=== PATIENT | male | born 1965 | race Caucasian/White ===

== ENCOUNTER → 2018-01-26 | Outpatient (CLI) | payer MEDICAID, SELFPAY ==
[~2018-01-26] MED LIST: Bp med; None per pt
[2018-01-26 11:40] LABS: BASOPHILS # (AUTO) 0.04 x10^3/uL (0-0.1); BASOPHILS % (AUTO) 1 % (0-1); EOSINOPHILS # (AUTO) 0.16 x10^3/uL (0-0.4); EOSINOPHILS % (AUTO) 2 % (1-7); LYMPHOCYTES # (AUTO) 2.12 x10^3/uL (1-3.4); LYMPHOCYTES % (AUTO) 29 % (22-44); MD NO; MEAN CORPUSCULAR HEMOGLOBIN 31.1 pg (27.5-34.5); MEAN CORPUSCULAR HGB CONC 33.8 g/dL (33.2-36.2); MEAN CORPUSCULAR VOLUME 92.1 fL (81-97); MEAN PLATELET VOLUME 8.1 fL (7.4-10.4); MONOCYTES # (AUTO) 0.93 x10^3/uL (0.2-0.8); MONOCYTES % (AUTO) 13 % (2-9); NEUTROPHILS # (AUTO) 4.05 x10^3/uL (1.8-6.8); NEUTROPHILS % (AUTO) 56 % (42-75); PLATELET COUNT 254 x10^3/uL (130-400); RED BLOOD COUNT 5.51 x10^6/uL (4.38-5.82); RED CELL DISTRIBUTION WIDTH 13.7 % (9.4-14.8)
[2018-01-26 11:51] LABS: ALBUMIN 3.8 g/dL (3.4-5.0); ANION GAP 8 mmol/L (5-15); CHLORIDE 106 mmol/L (98-107)
[2018-01-26 11:54] LABS: ALANINE AMINOTRANSFERASE 226 U/L (12-78); ALKALINE PHOSPHATASE 63 U/L (45-117); BILIRUBIN,TOTAL 1.1 mg/dL (0.2-1.0); CREATININE 1.14 mg/dL (0.7-1.3); TOTAL PROTEIN 7.6 g/dL (6.4-8.2)
[2018-01-26 11:55] LABS: INTERNATIONAL NORMALIZED RATIO 0.96 (0.93-1.1)
[2018-01-26 11:59] LABS: HCT (SEDRATE) 50.8 % (39.2-51.8)
[2018-01-26 12:16] LABS: MICROSCOPIC AUTO
[2018-01-26 12:40] LABS: CULTURE INDICATED? YES
== END | disposition home or self-care (01) ==
LOC: STAR 10:30
PROVIDERS: ATTEND Orthopaedic Surgery Orthopaedic Surgery of the Spine
DX: Z01.818 Encounter for other preprocedural examination (principal); M47.22 Other spondylosis with radiculopathy, cervical region; I10 Essential (primary) hypertension; Z87.891 Personal history of nicotine dependence
CPT/HCPCS: 36415; 71046; 72052; 80053; 80074; 81001; 85025; 85610; 85651; 85730; 87086; 87521; 87806; 93005; G0475

== ENCOUNTER 2018-01-31 05:58 | Inpatient (IN) | payer MEDICAID ==
[~2018-01-31] VITALS: Ht 167.6 cm; Wt 83.4 kg
[2018-01-31] MEDS ORDERED: LACTATED RINGERS 1,000 ML IV SCH (06:39)
[2018-01-31] MEDS ORDERED: LIDOCAINE-MPF 1%, 2ML ONE (06:39)
[2018-01-31] MEDS ORDERED: BUPIVACAINE 0.25% ONE (06:52)
[2018-01-31] MEDS ORDERED: EPINEPHRINE 1 MG/ML, 1ML ONE (06:52)
[2018-01-31] MEDS ORDERED: BUPIVACAINE/PF 0.5% ONE (06:52)
[2018-01-31] MEDS ORDERED: INDIGO CARMINE 0.8%, 5ML ONE (06:52)
[2018-01-31] MEDS ORDERED: LIDOCAINE/PF 1%, 30ML ONE (06:52)
[2018-01-31] MEDS ORDERED: THROMBIN 5,000 UNIT VIAL TP ONE (06:53)
[2018-01-31] MEDS ORDERED: BACITRACIN 50,000 UNIT ONE (06:53)
[2018-01-31] MEDS ORDERED: LIDOCAINE-MPF 1%, 2ML INFIL ONE (07:00)
[2018-01-31 07:01] LABS: CULTURE INDICATED? NO; MICROSCOPIC NOT IND
[2018-01-31] MEDS ORDERED: ONDANSETRON ODT 8 MG PO ONE (07:08)
[2018-01-31] MEDS ORDERED: KETAMINE 10 MG/ML, 20ML ONE (07:09)
[2018-01-31] MEDS ORDERED: FENTANYL PF 250 MCG/5ML ONE (07:09)
[2018-01-31] MEDS ORDERED: MIDAZOLAM 1 MG/ML, 2ML ONE (07:09)
[2018-01-31] MEDS ORDERED: PROPOFOL 50 ML ONE ×2 (07:09→10:00)
[2018-01-31] MEDS ORDERED: SUFentanil 50 MCG/ML, 2ML ONE ×2 (07:23→07:26)
[2018-01-31] MEDS ORDERED: ACETAMINOPHEN 500 MG TABLET PO ONE (07:30)
[2018-01-31] MEDS ORDERED: METOCLOPRAMIDE 10MG TABLET PO ONE (07:30)
[2018-01-31] MEDS ORDERED: FAMOTIDINE 20 MG TABLET PO ONE (07:30)
[2018-01-31] MEDS ORDERED: TAMSULOSIN 0.4 MG CAP.ER.24H PO ONE (07:30)
[2018-01-31] MEDS ORDERED: OxyconTIN ER 20 MG TAB.ER PO ONE (07:30)
[2018-01-31] MEDS ORDERED: ROCURONIUM 10 MG/ML,10ML ONE (07:56)
[2018-01-31] MEDS ORDERED: CEFAZOLIN 1,000 MG ONE (07:56)
[2018-01-31] MEDS ORDERED: PHENYLEPHRINE 10 MG/ML ONE (07:56)
[2018-01-31] MEDS ORDERED: SUCCINYLCHOLINE 20 MG/ML, 10ML ONE (07:56)
[2018-01-31] MEDS ORDERED: GLYCOPYRROLATE 0.2MG/1ML, 5ML ONE (07:56)
[2018-01-31] MEDS ORDERED: DEXAMETHASONE 4 MG/ML, 5ML ONE (07:56)
[2018-01-31] MEDS ORDERED: NALOXONE 0.4 MG/ML, 1ML ONE (07:56)
[2018-01-31] MEDS ORDERED: CELE200C PO (08:32)
[2018-01-31] MEDS ORDERED: GABA300C10 PO (08:32)
[2018-01-31] MEDS ORDERED: MELO15TA24 PO (08:32)
[2018-01-31] MEDS ORDERED: HYDR25TA6 PO (08:32)
[2018-01-31] MEDS ORDERED: CEPH-376 PO (08:32)
[2018-01-31] MEDS ORDERED: PROPOFOL 150 ML ONE (08:32)
[2018-01-31] MEDS ORDERED: LABETALOL 5MG/ML, 20ML IV PRN (10:30)
[2018-01-31] MEDS ORDERED: MEPERIDINE/PF 25MG/0.5ML IVPush PRN (10:30)
[2018-01-31] MEDS ORDERED: ALBUTEROL SULFATE 2.5 MG/3 ML NPPB PRN (10:30)
[2018-01-31] MEDS ORDERED: OXYcodone 5 MG/5 ML ORAL.SOL UDC PO PRN (10:30)
[2018-01-31] MEDS ORDERED: FENTANYL PF 100 MCG/2ML IV PRN (10:30)
[2018-01-31] MEDS ORDERED: DIAZEPAM 5 MG/ML, 2ML IVPush PRN (10:30)
[2018-01-31] MEDS ORDERED: morphine SULFATE 10 MG/ML, 1ML IV PRN (10:30)
[2018-01-31] MEDS ORDERED: PROMETHAZINE 25 MG/ML, 1ML IV PRN (10:30)
[2018-01-31] MEDS ORDERED: DIPHENHYDRAMINE 50 MG/ML, 1ML IVPush PRN (14:30)
[2018-01-31] MEDS ORDERED: DIPHENHYDRAMINE 50 MG/ML, 1ML IM PRN (14:30)
[2018-01-31] MEDS ORDERED: PROMETHAZINE 12.5 MG SUPP PR PRN (14:30)
[2018-01-31] MEDS ORDERED: PROMETHAZINE 25 MG/ML, 1ML IM PRN (14:30)
[2018-01-31] MEDS ORDERED: MAGNESIUM HYDROXIDE 8%, 30ML UDC PO PRN (14:30)
[2018-01-31] MEDS ORDERED: HYDROmorphone 2 MG/ML, 1ML IM PRN (14:30)
[2018-01-31] MEDS ORDERED: OXYcodone IR 5MG TABLET PO PRN ×3 (14:30)
[2018-01-31] MEDS ORDERED: DIAZEPAM 5 MG TABLET PO PRN (14:30)
[2018-01-31] MEDS ORDERED: DIAZEPAM 5 MG/ML, 2ML IV PRN (14:30)
[2018-01-31] MEDS ORDERED: DIPHENHYDRAMINE 50 MG CAPSULE PO PRN (14:30)
[2018-01-31] MEDS ORDERED: BISACODYL 10 MG SUPP PR PRN (14:30)
[2018-01-31] MEDS ORDERED: NICOTINE 21 MG/24 HR PATCH.TD24 TD SCH (14:30)
[2018-01-31] MEDS: D5%-0.9% NACL+KCL 20MEQ 1,000 ML IV SCH (15:09)
[2018-01-31] MEDS: DEXAMETHASONE 4 MG/ML, 1ML IVPush SCH ×2 (15:09→20:56)
[2018-01-31] MEDS: GABAPENTIN 300 MG CAPSULE PO SCH ×2 (15:20→20:56)
[2018-01-31] MEDS: CEFAZOLIN PMX 1GM/50ML 50 ML IVPB SCH (15:59)
[2018-01-31 19:44] VITALS: BP 112/61
[2018-02-01] MEDS: D5%-0.9% NACL+KCL 20MEQ 1,000 ML IV SCH ×2 (00:02→08:00)
[2018-02-01] MEDS: CEFAZOLIN PMX 1GM/50ML 50 ML IVPB SCH ×2 (00:03→08:47)
[2018-02-01 00:08] VITALS: BP 121/67
[2018-02-01 04:08] VITALS: BP 128/70
[2018-02-01 07:08] VITALS: BP 139/68
[2018-02-01] MEDS ORDERED: HYDROCHLOROTHIAZIDE 25 MG TABLET PO SCH (09:00)
[2018-02-01] MEDS ORDERED: SENNA/DOCUSATE TABLET PO SCH (09:00)
[2018-02-01] MEDS: GABAPENTIN 300 MG CAPSULE PO SCH (09:55)
[2018-02-01 13:57] VITALS: BP 161/76
== END 2018-02-01 14:00 | disposition home or self-care (01) | DRG 472 ==
LOC: ORIP 05:58 → 4NOR 13:56
PROVIDERS: ADMIT Orthopaedic Surgery Orthopaedic Surgery of the Spine; ATTEND Orthopaedic Surgery Orthopaedic Surgery of the Spine
PROC: 00NW0ZZ Release Cervical Spinal Cord, Open Approach (ICD-10-PCS; 2018-01-31)
PROC: 0RB30ZZ Excision of Cervical Vertebral Disc, Open Approach (ICD-10-PCS; 2018-01-31)
PROC: 01N10ZZ Release Cervical Nerve, Open Approach (ICD-10-PCS; 2018-01-31)
PROC: 4A11X4G Monitoring of Peripheral Nervous Electrical Activity, Intraoperative, External Approach (ICD-10-PCS; 2018-01-31)
PROC: 0RG20A0 Fusion of 2 or more Cervical Vertebral Joints with Interbody Fusion Device, Anterior Approach, Anterior Column, Open Approach (ICD-10-PCS; principal; 2018-01-31 07:30)
DX: M48.02 Spinal stenosis, cervical region (principal); M47.12 Other spondylosis with myelopathy, cervical region; M50.021 Cervical disc disorder at C4-C5 level with myelopathy; M50.121 Cervical disc disorder at C4-C5 level with radiculopathy; M40.209 Unspecified kyphosis, site unspecified; R74.0 Nonspecific elevation of levels of transaminase and lactic acid dehydrogenase [LDH]; I10 Essential (primary) hypertension; B19.20 Unspecified viral hepatitis C without hepatic coma; Z72.0 Tobacco use; Z98.1 Arthrodesis status; Z85.89 Personal history of malignant neoplasm of other organs and systems
CPT/HCPCS: 72040; 81003; 95938; 95941; C1713; J0171; J0690; J1100; J2250; J2310; J2704; J3010; J3490; Q0162; C1762; J0330; J2370; J3480; J7120